=== PATIENT | male | born 1990 | race Native Hawaiian/Other Pacific Islander ===

== ENCOUNTER 2023-02-19 12:33 | Day surgery (SDC) | payer OTHER, SELFPAY ==
[2023-02-19] VITALS (7 sets, daily range): BP systolic 84–132; BP diastolic 39–79; PULSE 56–99; RESP 10–19; TEMP 36.2–36.3; O2SAT 97–99; BMI 56.9
--- NOTE | 2023-02-19 | DI.RAD.S_ITS ---
PROCEDURE: XR ABDOMEN MIN 2V INDICATIONS: 10/10 pain post colonoscopy. TECHNIQUE: 2 views of the abdomen were acquired. COMPARISON: None. FINDINGS: Surgical changes and devices: None. Bowel: No pneumoperitoneum. The bowel gas pattern is normal. Soft tissues: No masses; visualized solid organ contours appear normal in size. No suspicious abdominal calcifications. Bones: No suspicious bony abnormalities. IMPRESSION: No acute abnormality. No free air. Dictated by: Garett Caba M.D. on 02/19/2023 at 17:31 Approved by: Garett Caba M.D. on 02/19/2023 at 17:33
[2023-02-19] MEDS: LACTATED RINGERS 1,000 ML 42 ML IV (13:30)
--- NOTE | 2023-02-19 15:19 | PM.PREOP ---
Pre-operative Note Interval Note History & Physical reviewed/Exam performed by Physician: Yes Changes to H&P: No H&P completed within 30 days and has changed as indicated here:: Presents today for screening colonoscopy I discussed the risks benefits and alternatives including but not limited to perforation of the colon and an incomplete exam he fully understands these risks and would like to proceed. I also discussed hemorrhoid banding with risks being pain bleeding or pelvic sepsis. These are rare also and Basil understands and would like to proceed with the banding if it is indicated as well.
--- NOTE | 2023-02-19 16:07 | PM.OP.COLON ---
Operative Date/Time/Diagnoses Date of procedure: 02/19/23 Time of procedure: 16:07 Pre-op diagnosis: gi bleeding Post-op diagnosis: same Procedure & Clinicians Study performed: colonoscopy Same procedure as scheduled: Yes Indications: gi bleeding Surgeon: Michaela Burk Procedure Notes Procedure in detail: Patient was taken to the endoscopy suite and placed in a left lateral decubitus position. A time out was preformed. Conscious sedation with Anesthesiologist was induced and monitored throughout. Digital rectal exam was preformed there were no masses or strictures. External hemorrhoids not appreciated. The colonoscope was introduced into the anal canal and advanced through to the cecum. A photograph of the appendiceal orifice was obtained. There were no polyps appreciated. The scope was withdrawn for 20 minutes. The prep was excellent. The scope was retroflexed and a photograph obtained. There were 2 engorged internal hemorrhoidal piles. The colonoscope was then withdrawn and the anoscope introduced. See separate procedure note for rubber band ligation. Findings: internal hemorrhoids Specimen(s): none sent Complications: none Post-procedure Plan for aftercare: fiber recommendations. Note: called to PACU because patient having severe abdominal pain. AXR obtained. No free air, though my own interpretation is that there was a lot of gas within the colon, that was probably the source of the pain. Expect it to pass and improve quickly and ok to discharge home when improved. Discussed with patient and bedside RN.
--- NOTE | 2023-02-19 16:07 | PM.PROC.1 ---
Procedures Date/Time Date of procedure: 02/19/23 Time of procedure: 16:08 General Procedure description: Internal hemorrhoid banding: After the cessation of the colonoscopy, an anoscope was introduced into the anus and there were 2 rather large internal hemorrhoids 1 of which was actively bleeding. These were in the left anterior and left posterior positions. The left posterior was bleeding. The banding device was placed a above and over the bleeding internal hemorrhoids and deployed twice once on each pile.. The rubber bands were in good position and looked correctly placed and secure. Patient tolerated the procedure well and went in good condition postoperative care unit
--- NOTE | 2023-02-19 16:56 | SUR.PHASEII ---
Pt lying flat in stretcher with 10/10 pain, wincing in pain, says it is excrutiating with any palpation. Abdomen soft, nondistended. Guarding at times. Unable to pas gas after lying on left side. BP 108/70 HR 57 Sats 98% RA. A&Ox3. KUB ordered. Dr Burk updated and aware.
--- NOTE | 2023-02-19 18:30 | SUR.PHASEII ---
Patient was cleared by radiology and Dr. Burk to discharge. Patient denied passing flatus. Patient ambulated independently until he was able to burp and reported feeling more comfortable.
== END 2023-02-19 18:06 | disposition home or self-care (01) ==
PROVIDERS: Surgery; PCP Physician Assistant; Referring Provider Surgery; Visit Provider Surgery
PROC: 0DJD8ZZ Inspection of Lower Intestinal Tract, Via Natural or Artificial Opening Endoscopic (ICD-10-PCS; CPT 45378; principal; 2023-02-19 13:00)
DX: K62.5 Hemorrhage of anus and rectum (principal); K64.8 Other hemorrhoids; D50.9 Iron deficiency anemia, unspecified; G89.18 Other acute postprocedural pain
CPT/HCPCS: 45398; 74019; J2704; J3010

== ENCOUNTER 2024-09-27 15:07 | Day surgery (SDC) | payer OTHER, SELFPAY ==
[2024-09-18 13:55] VITALS: BMI 27.6
--- NOTE | 2024-09-19 09:38 | PM.PREOP ---
Pre-operative Note Interval Note History & Physical reviewed/Exam performed by Physician: Yes Changes to H&P: No
[2024-09-27] VITALS (7 sets, daily range): BP systolic 121–133; BP diastolic 67–85; PULSE 71–83; RESP 12–16; TEMP 36.2–36.7; O2SAT 96–100; BMI 28.5
--- NOTE | 2024-09-27 | PATH_ITS ---
[facility] Accession Number: [id number] No. of containers..01 Tissue . 01 Material submitted: . hemorrhoids - HEMORRHOIDS . 01 Diagnosis: HEMORRHOIDS, HEMORRHOIDECTOMY: Benign hemorrhoid tissue. Negative for dysplasia or malignancy. [facility] 09/29/2024 1019 Local . 01 Electronically signed: . Dawood Card MD, Pathologist NPI- [id number] . 01 Gross description: . HEMORRHOIDS: Received in formalin are 2 fragments of frey soft tissue measuring 4.5 x 4.0 x 1.6 cm. Tissue is inked. Specimen is sectioned and submitted in bottling equipment sales representative sections in 2 cassettes. /JOSE 09/28/2024 0149 Local . 01 Microscopic: . There are fragments of anal squamocolumnar junctional mucosa with dilated vessels and prominent congestion within the submucosa, consistent with hemorrhoid tissue. There is no dysplasia or malignancy. . 01 Pathologist provided ICD-10: K64.9 . 01 CPT . 665291 Specimen Comment: A courtesy copy of this report has been sent to [phone] Performed at: [address] [id number] MD Jeremy Daniel MD Phone: [phone]
[2024-09-27] MEDS: LACTATED RINGERS 1,000 ML 42 ML IV (15:22)
--- NOTE | 2024-09-27 16:51 | PM.PREOP ---
Pre-operative Note Interval Note History & Physical reviewed/Exam performed by Physician: Yes Changes to H&P: No
[2024-09-27] MEDS: BUPIVACAINE LIPOSOME 266 MG/20 ML VIAL INJ (17:23)
[2024-09-27] MEDS: BUPIVACAINE 0.25% (PF) VIAL 30 ML INJ (17:24)
--- NOTE | 2024-09-27 17:25 | SUR.OPER ---
Lithotomy on padded OR bed, head on pillow, arms secured on padded arm boards at <90 degrees abduction. Legs secured in padded yellow fins stirrups.
[2024-09-27] MEDS: DIBUCAINE 1% OINT 28 GM 1 APPLIC TOP (17:46)
--- NOTE | 2024-09-27 18:11 | PM.OP.1 ---
Operative Date/Time/Diagnoses Date of procedure: 09/27/24 Time of procedure: 18:11 Pre-op diagnosis: Hemorrhoids grade 4 Post-op diagnosis: same Procedure & Clinicians Procedure: Excisional hemorrhoidectomy Same procedure as scheduled: Yes Indications: Symptomatic chronically prolapsed hemorrhoids Surgeon: Fabiano Hazel Click Yes if Unassisted: Yes Operative Notes Findings: Grade 4 hemorrhoids left lateral and right posterior Specimen(s): other (hemorrhoids) Estimated Blood Loss (mL): 50 Procedure in detail: The patient was brought to the operating room placed supine on the table. Bilateral lower extremity compression devices were applied. General anesthesia was induced and they were intubated with an endotracheal tube. They were then placed into prone position and appropriately padded. They were then prepped and draped in usual sterile fashion. Time-out was performed. Rectal block was performed by injecting 20 mL of Exparel into the intersphincteric groove. An internal examination of the anal canal was made. The right posterior and left lateral hemorrhoid pedicles chronically prolapsed. Beginning with the left lateral pedicle it was grasped elevated and excised with electrocautery off the internal sphincter. The mucosal defect was then closed with a running 3-0 Vicyrl suture. Hemostasis was checked. The procedure was then repeated for the right posterior. The specimens were passed off the field. Wound was irrigated with saline. Gelfoam coated in Dibucaine ointment 1% was then placed into the anal canal. Sponge and instrument counts were correct at the end of the procedure. They emerged from anesthesia were extubated and transferred to the postoperative care unit in stable condition. Complications: none Post-operative Condition: stable Disposition: same day surgery
[2024-09-27] MEDS: OXYCODONE/ACETAMINOPHEN 5/325 TABLET 1 TAB PO (18:17)
[2024-09-27] MEDS: KETOROLAC 30 MG/ML VIAL IV (18:45)
== END 2024-09-27 18:52 | disposition home or self-care (01) ==
PROVIDERS: Referring Provider Surgery; Visit Provider Surgery
PROC: (CPT 46260; principal; 2024-09-27 16:15)
DX: K64.3 Fourth degree hemorrhoids (principal)
CPT/HCPCS: 46260; 82962; C9290; J1100; J1885; J2250; J2405; J2704; J3010